=== PATIENT | female | born 1950 | race Caucasian/White ===

== ENCOUNTER 2017-05-01 22:48 | Emergency (ER) | payer MEDICARE, OTHER ==
[~2017-05-01] VITALS: Ht 157.5 cm; Wt 84.0 kg
[~2017-05-01 22:48] MED LIST: ALLO100 PO; ASPI81 PO; CALC500T19 PO; METO50TA PO; OMEG12002 PO; RISP3TAB23; ROSU10 PO; TRAV0.00 EACH EYE; VITA-13 PO
[2017-05-01 23:08] VITALS: BP 143/65; PULSE 74; RESP 18; TEMP 97.9; O2SAT 97
[2017-05-01 23:20] VITALS: BP 143/65; PULSE 74; RESP 18; TEMP 97.9
[2017-05-01] MEDS ORDERED: NIZORAL TP (23:37)
[2017-05-01] MEDS ORDERED: [UNRECOGNIZED DRUG - OTHER] TOPICAL (23:37)
[2017-05-01] MEDS ORDERED: LOTR1CRE3 TOPICAL (23:37)
--- NOTE | 2017-05-01 23:37 | PD ---
HPI Chief Complaint: Skin Problem Time Seen by Provider: 23:25 Travel History International Travel<30 days: No Contact w/Intl Traveler<30days: No Traveled to known affect area: No History of Present Illness HPI 66-year-old female complains of rash underneath both breast since yesterday. Patient states that the rash is itching and with mild pain to it. Patient denies any fever chills. Patient denies any recent injury. PFSH Past Medical History Arthritis: Yes Blood Disorders: No Heart Rhythm Problems: No Cancer: Yes Cardiovascular Problems: No Chemotherapy: No Chest Pain: Yes Congestive Heart Failure: No Diabetes: No Endocrine: No Gastrointestinal Disorders: Yes GERD: No Glaucoma: Yes Genitourinary: No Hepatitis: Yes (AGE 16) Hiatal Hernia: No Hypertension: Yes Immune Disorder: No Kidney Stones: Yes Musculoskeletal: No Neurologic: No Psychiatric: No Reproductive: No Respiratory: No Radiation Therapy: No Renal Failure: No Thyroid Disease: No Ulcer: No : 1 Para: 1 Tubal Ligation: Yes Past Surgical History Abdominal Surgery: No Appendectomy: Yes Cardiac Surgery: No Cholecystectomy: Yes Ear Surgery: No Endocrine Surgery: No Eye Surgery: No Genitourinary Surgery: Yes (MESH IMPLANT) Gynecologic Surgery: Yes (OVARIES REMOVED) Oral Surgery: No Pacemaker: No Thoracic Surgery: No Tonsillectomy: Yes Other Surgery: Yes (right kidney removed) Social History Alcohol Use: Yes (RARELY) Tobacco Use: No Substance Use: No Allergies-Medications (Allergen,Severity, Reaction): Coded Allergies: codeine (Unverified Allergy, Severe, reddened eyes swelling, 04/09/17) clarithromycin (Unverified Allergy, Mild, Hives, 04/09/17) doxycycline (Unverified Allergy, Mild, Hives, 04/09/17) erythromycin base (Unverified Allergy, Mild, Hives, 04/09/17) minocycline (Unverified Allergy, Mild, Hives, 04/09/17) tigecycline (Unverified Allergy, Mild, Hives, 04/09/17) Reported Meds & Prescriptions Reported Meds & Active Scripts Active Risperdal (Risperidone) 3 Mg Tab 1 Mg .ROUTE BID 30 Days Reported Metoprolol Tartrate 50 mg (Metoprolol Tartrate) 50 Mg Tab 50 Mg PO DAILY Calcium 500 Mg Tab 500 Mg PO DAILY Vitamin D3 (Cholecalciferol) 1,000 Unit Tab 1,000 Unit PO DAILY [place] 3 ([place]-3 Fatty Acids) 1,200 Mg Cap 1 Cap PO DAILY Travatan Z (Travoprost) 0.004 % Yong 1 Drop EACH EYE HS Aspirin 81 Mg Tab 81 Mg PO DAILY Zyloprim (Allopurinol) 100 Mg Tab 100 Mg PO DAILY Crestor (Rosuvastatin Calcium) 10 Mg Tab 10 Mg PO DAILY Review of Systems General / Constitutional: No: Fever Eyes: No: Visual changes HENT: No: Headaches Cardiovascular: No: Chest Pain or Discomfort Respiratory: No: Shortness of Breath Gastrointestinal: No: Abdominal Pain Genitourinary: No: Dysuria Musculoskeletal: No: Pain Skin: Positive Rash Neurologic: No: Weakness Psychiatric: No: Depression Endocrine: No: Polydipsia Hematologic/Lymphatic: No: Easy Bruising Physical Exam Narrative GENERAL: Well-nourished, well-developed patient. SKIN: Focused skin assessment warm/dry. HEAD: Normocephalic. EYES: No scleral icterus. No injection or drainage. NECK: Supple, trachea midline. No JVD or lymphadenopathy. CARDIOVASCULAR: Regular rate and rhythm without murmurs, gallops, or rubs. RESPIRATORY: Breath sounds equal bilaterally. No accessory muscle use. GASTROINTESTINAL: Abdomen soft, non-tender, nondistended. MUSCULOSKELETAL: No cyanosis, or edema. BACK: Nontender without obvious deformity. No CVA tenderness. Patient has mild reddish moist rash underneath both breasts. Nontender on palpation. No heat. No discharge. Data Data Last Documented VS Vital Signs Date Time Temp Pulse Resp B/P (MAP) Pulse Ox O2 Delivery O2 Flow Rate FiO2 05/01/17 23:08 97.9 74 18 143/65 (91) 97 MDM Medical Decision Making Medical Screen Exam Complete: Yes Emergency Medical Condition: Yes Differential Diagnosis Differential diagnosis including Tinia corporis, cellulitis, abscess. Narrative Course 66-year-old female with rash underneath both breasts. Diagnosis Primary Impression: Tinea corporis Patient Instructions: General Instructions Additional Instructions: Lotrimin Ultra cream as directed. Nizoral powder or Zeosorb as directed. Follow-up with local physician. Med/Other Pt SpecificInfo: Prescription(s) given Scripts [Nizoral Powder] No Conflict Check 1 APPLIC TP BID, #1 Prov: Suman Hernandez MD 05/01/17 [Zeosorb Powder] No Conflict Check 1 APPLIC TOPICAL BID, #1 Prov: Suman Hernandez MD 05/01/17 Butenafine Topical (Lotrimin Ultra Topical) 1% Cream 1 APPLIC TOPICAL BID for Infection, #1 TUBE 0 Refills Apply to: Prov: Suman Hernandez MD 05/01/17 Disposition: 01 DISCHARGE HOME Condition: Stable Suman Hernandez MD May 01, 2017 23:37
[2017-05-01] MEDS ORDERED: ASPI81CH CHEW (23:47)
[2017-05-01] MEDS ORDERED: CYAN1TAB24 (23:47)
[2017-05-01] MEDS ORDERED: OMEGCAP PO (23:47)
[2017-05-01] MEDS ORDERED: D-20TAB3 PO (23:47)
[2017-05-01] MEDS ORDERED: ALLO100T PO (23:47)
[2017-05-01] MEDS ORDERED: METO50TA PO (23:47)
[2017-05-01 23:59] VITALS: BP 138/76
== END 2017-05-02 00:20 | disposition home or self-care (01) ==
LOC: PHED 22:48
DX: B35.4 Tinea corporis (principal); I10 Essential (primary) hypertension
CPT/HCPCS: 99284